=== PATIENT | female | born 1955 | race Caucasian/White ===

== ENCOUNTER → 2023-09-17 | Outpatient (CLI) | payer MEDICARE, OTHER ==
--- NOTE | 2023-09-17 17:02 | US ---
EXAMINATION TYPE: US venous doppler duplex LE BI DATE OF EXAM: 09/17/2023 2:37 PM COMPARISON: NONE CLINICAL INDICATION: Female, 68 years old with history of L81.9 Discoloration of BLE; Discoloration o f BLE. No hx of DVT. Patient does not take blood thinners. SIDE PERFORMED: Bilateral TECHNIQUE: The lower extremity deep venous system is examined utilizing real time linear array sonog yaakov with graded compression, doppler sonography and color-flow sonography. VESSELS IMAGED: Common Femoral Vein Deep Femoral Vein Greater Saphenous Vein * Femoral Vein Popliteal Vein Small Saphenous Vein * Proximal Calf Veins (* superficial vessels) Right Leg: No evidence of DVT. Left Leg: No evidence of DVT. IMPRESSION:
--- NOTE | 2023-09-17 17:10 | US ---
EXAMINATION TYPE: US arterial LE single level DATE OF EXAM: 09/17/2023 3:07 PM CLINICAL INDICATION: Female, 68 years old with history of L81.9 DISCOLORATION BLE; Discoloration of B LE. Patient states she gets itchy red spots on her legs. History of: Smoker: Previous Hypertension: Yes Diabetic: No Hyperlipidemia: Yes TIA/CVA: No Previous Vascular Surgery: No CAD: No MS: No Vascular Ulcers: No Claudication: No Gangrene: No Doppler Waveforms: Right: Multiphasic Left: Multiphasic Pulse Volume Recording: Pressure Gradients: Right Brachial Pressure: 149 Left Brachial Pressure: 151 Ankle-Brachial Indices: Right: 1.05 Left: 1.07 Toe Brachial Indices: Right: 0.70 Left: 0.66 IMPRESSION: Normal ankle-brachial indices bilaterally.
== END | disposition home or self-care (01) ==
LOC: RADUSWWP 13:24
PROVIDERS: ATTEND Family Medicine
DX: L81.9 Disorder of pigmentation, unspecified (principal); I10 Essential (primary) hypertension; E78.5 Hyperlipidemia, unspecified
CPT/HCPCS: 93922; 93970

== ENCOUNTER 2024-11-06 08:56 | Emergency (ER) | payer MEDICARE, OTHER ==
[2024-11-06 09:04] VITALS: RESP 16; TEMP 98.1
--- NOTE | 2024-11-06 09:21 | ED ---
General Adult HPI <Brigida Garcia - Last Filed: 11/06/24 10:22> - General Source: patient, RN notes reviewed Mode of arrival: wheelchair Limitations: no limitations <Nils Ceballos - Last Filed: 11/06/24 13:31> - General Chief complaint: Fall Stated complaint: Fall Time Seen by Provider: 11/06/24 09:05 - History of Present Illness Initial comments: Patient is a 69-year-old female who presents emergency department after a fall. Patient tripped and fell on a curb at [place]. Has history of hypertension, hyperlipidemia, COPD. States that when she fell, she did strike the right side of her head as well as her left hand. Has a laceration on her left anterior ring finger and also pain with movement. Some mild tenderness over both knees but able to ambulate without issue. Denies any back pain, abdominal pain, chest pain. States she did not lose consciousness. States she is not on blood thinners. Has some bruising surrounding the right eye but no blurry vision or visual changes. No other acute complaints at this time. Presents for further evaluation. (Nils Ceballos) - Related Data Home Medications Medication Instructions Recorded Confirmed Albuterol Sulfate [Albuterol 1 - 2 puff PO RT-Q6H PRN 11/06/24 11/06/24 Sulfate Hfa] Azithromycin [Zithromax Z Pack] See Taper PO DIRECTED 11/06/24 11/06/24 Simvastatin [Zocor] 40 mg PO HS 11/06/24 11/06/24 Triamterene/Hydrochlorothiazid 1 cap PO DAILY 11/06/24 11/06/24 [Triamterene-Hctz 37.5-25 mg Cp] methylPREDNISolone [Medrol Dose See Taper PO DIRECTED 11/06/24 11/06/24 Pack] Previous Rx's Medication Instructions Recorded Cephalexin [Keflex] 500 mg PO Q12HR 10 Days #20 cap 11/06/24 Allergies Allergy/AdvReac Type Severity Reaction Status Date / Time No Known Allergies Allergy Verified 11/06/24 10:25 Review of Systems ROS Other: All systems not noted in ROS Statement are negative. <Brigida Garcia Last Filed: 11/06/24 10:22> ROS Other: All systems not noted in ROS Statement are negative. <Nils Ceballos - Last Filed: 11/06/24 13:31> ROS Statement: Those systems with pertinent positive or pertinent negative responses have been documented in the HPI. Review of Systems: CONST: Denies fever EYES: Denies blurry vision ENT: Denies nasal congestion C/V: Denies Chest pain RESP: Denies shortness of breath GI: Denies abdominal pain : Denies dysuria SKIN: Endorses finger laceration MSK: Endorses right forehead pain, finger pain NEURO: Denies headache (Nils Ceballos) Past Medical History Past Medical History: COPD, Hyperlipidemia, Hypertension History of Any Multi-Drug Resistant Organisms: None Reported Past Surgical History: No Surgical Hx Reported Past Psychological History: No Psychological Hx Reported Smoking Status: Former smoker Past Alcohol Use History: None Reported Past Drug Use History: None Reported <Nils Ceballos - Last Filed: 11/06/24 13:31> General Exam Limitations: no limitations <Nils Ceballos - Last Filed: 11/06/24 13:31> - General Exam Comments Initial Comments: General: Appears in mild distress secondary to pain. HEAD: Bruising over the right forehead. Negative Funes sign. Negative raccoon eyes. EYES: PERRLA, EOMI, conjunctiva normal, no discharge. Pupils are 3 mm and equal bilaterally. ENT: Hearing grossly intact, normal oropharynx. RESPIRATORY: Clear breath sounds bilaterally. No wheezes, rales, or rhonchi. C/V: Regular rate and rhythm. S1 and S2 auscultated, no edema, peripheral pulses 2+ and intact throughout ABD: Abd is soft, nontender, nondistended EXT: Decreased range of motion of the left fourth digit on the hand secondary to pain. Pelvis is stable. No midline cervical, thoracic, lumbar spine tende rness to palpation. SKIN: Approximate 2 cm linear laceration located over the anterior aspect of the left fourth digit. NEURO: Alert and oriented x 4. The only deficit is to the left fourth digit on the hand secondary to pain. GCS of 15. (Nils Ceballos) Course Vital Signs 11/06/24 09:00 Temperature 98.1 F Pulse Rate 72 Respiratory 16 Rate Blood Pressure 143/86 O2 Sat by Pulse 95 Oximetry Procedures - Laceration Laceration #1 Consent Obtained: verbal consent Indication: laceration Site: other (Left ring finger) Size (cm): 3 Description: linear Depth: simple, single layer Anesthetic Used: lidocaine 2% Anesthesia Technique: local infiltration Amount (mls): 4 Pre-repair: wound explored, irrigated extensively Type of Sutures: nylon Size of Sutures: 5-0 Number of Sutures: 5 Technique: simple, interrupted <Brigida Garcia - Last Filed: 11/06/24 10:22> - Orthopedic Splinting/Casting Injury #1 Side: left Upper Extremity Injury Location: short arm, finger Upper Extremity Immobilizer: ulnar gutter <Nils Ceballos - Last Filed: 11/06/24 13:31> - Orthopedic Splinting/Casting Injury #1 Additional Comments: Tolerated the procedure well. (Nils Ceballos) Medical Decision Making - Lab Data Result diagrams: 11/06/24 09:50 11/06/24 09:50 <Brigida Garcia - Last Filed: 11/06/24 10:22> - Lab Data Result diagrams: 11/06/24 09:50 11/06/24 09:50 <Nils Ceballos - Last Filed: 11/06/24 13:31> - Medical Decision Making Was pt. sent in by a medical professional or institution (, PA, PAY STATION ATTENDANT, urgent care, hospital, or halfway...) When possible be specific @ -No Did you speak to anyone other than the patient for history (EMS, parent, family, police, friend...)? What history was obtained from this source @ -No Did you review nursing and triage notes (agree or disagree)? Why? @ -I reviewed and agree with nursing and triage notes Were old charts reviewed (outside hosp., previous admission, EMS record, old EKG, old radiological studies, urgent care reports/EKG's, halfway records)? Report findings @ -No old charts were reviewed Differential Diagnosis (chest pain, altered mental status, abdominal pain women, abdominal pain men, vaginal bleeding, weakness, fever, dyspnea, syncope, headache, dizziness, GI bleed, back pain, seizure, CVA, palpatations, mental health, musculoskeletal)? @ -Differential Musculoskeletal Muscular strain, contusion, ligament sprain, fracture, arthritis, septic arthritis, bursitis, cellulitis, muscle spasm, nerve compression, DVT, arterial occlusion, herpes zoster, electrolyte abnormality, tumor.... This is not meant to be in all inclusive list EKG interpreted by me (3pts min.). @ -None done X-rays interpreted by me (1pt min.). @ -Hand x-ray shows an acute left fourth digit proximal phalanx fracture. Post splinting x-ray reveals somewhat improved positioning. CT interpreted by me (1pt min.). @ -CT brain and face negative for any obvious acute traumatic injury or intracranial process. U/S interpreted by me (1pt. min.). @ -None done What testing was considered but not performed or refused? (CT, X-rays, U/S, labs)? Why? @ -None What meds were considered but not given or refused? Why? @ -None Did you discuss the management of the patient with other professionals (professionals i.e. , PA, PAY STATION ATTENDANT, lab, RT, psych nurse, social and human services assistant, systems designer, teacher, tactical response group officer, porter sample case)? Give summary @ -No Was smoking cessation discussed for >3mins.? @ -No Was critical care preformed (if so, how long)? @ -No Were there social determinants of health that impacted care today? How? (Home lessness, low income, unemployed, alcoholism, drug addiction, transportation, low edu. Level, literacy, decrease access to med. care, longterm, rehab)? @ -No Was there de-escalation of care discussed even if they declined (Discuss DNR or withdrawal of care, Hospice)? DNR status @ -No What co-morbidities impacted this encounter? (DM, HTN, Smoking, COPD, CAD, Cancer, CVA, ARF, Chemo, Hep., AIDS, mental health diagnosis, sleep apnea, morbid obesity)? @ -None Was patient admitted / discharged? Hospital course, mention meds given and route, prescriptions, significant lab abnormalities, going to OR and other pertinent info. @ -Based on the patient's presentation physical exam, presents emergency d epartment after a fall. Has a laceration to the left fourth digit on her hand with some tenderness of this digit. Also has some bruising above the right eye after the fall. No significant headache. Complaining of pain in the digit. Bleeding from laceration there as well. Is not up-to-date and on tetanus and patient will be given tetanus booster. Patient given Tylenol for pain. Lidocaine is ordered for numbing. Will obtain x-rays and CT brain and facial bones. Patient also empirically given a dose of Ancef for the laceration of the hand. She was in agreement this plan. Labs unremarkable. CT imaging negative for any obvious traumatic injury. And x-ray shows a acute left fourth digit proximal phalanx fracture. This is not near the site of the laceration therefore I do not suspect an open fracture however we will cover for an open fracture with Keflex at home. Patient placed in a gutter splint and tolerated the procedure well after laceration was repaired by an catering administrative assistant midlevel provider. Patient given analgesia medications and vital signs are within acceptable limits. Instructions follow-up with hand surgery next week. She was in agreement this plan. Strict return precautions discussed. I will provide the patient with a prescription for Tylenol 3 starter pack. I instructed the patient to follow up with their PCP in the next 1-3 days. I provided contact information for follow up with orthopedic hand surgery. I explained that the patient should return to the emergency department if they experience any worsening symptoms. Strict return precautions were discussed with the patient. The patient expressed understanding of these instructions. I answered all questions that the patient had. The patient was discharged home in good condition with their prescriptions and follow up information. Undiagnosed new problem with uncertain prognosis? @ -No Drug Therapy requiring intensive monitoring for toxicity (Heparin, Nitro, Insulin, Cardizem)? @ -No Were any procedures done? @ -Splinting, laceration repair Diagnosis/symptom? @ -Fall, proximal phalanx fracture of left fourth digit, laceration Acute, or Chronic, or Acute on Chronic? @ -Acute Uncomplicated (without systemic symptoms) or Complicated (systemic symptoms)? @ -Uncomplicated Side effects of treatment? @ -None Exacerbation, Progression, or Severe Exacerbation] @ -No Poses a threat to life or bodily function? @ -Unlikely at this time (Nils Ceballos) - Lab Data Lab Results 11/06/24 11/06/24 Range/Units 09:50 09:50 WBC 7.12 (4.50-10.00) 10*3/uL RBC 5.05 (4.10-5.20) 10*6/uL Hgb 15.1 H (12.0-15.0) g/dL Hct 43.8 (37.2-46.3) % MCV 86.7 (80.0-97.0) fL MCH 29.9 (27.0-32.0) pg MCHC 34.5 (32.0-37.0) g/dL Plt Count 217 (140-440) 10*3/uL MPV 11.3 (9.5-12.2) fL Immature Gran % (Auto) 0.3 % Neutrophils % (Manual) 48 % Lymphocytes % (Manual) 34 % Monocytes % (Manual) 18 % Immature Gran # 0.02 (0.00-0.04) 10*3/uL Neutrophils # (Manual) 3.42 (1.3-7.7) k/uL Lymphocytes # (Manual) 2.42 (1.0-4.8) k/uL Monocytes # (Manual) 1.28 H (0-1.0) k/uL Nucleated RBCs 0 (0-0) /100 WBC Manual Slide Review Performed RBC Morphology Normal Sodium 135 L (137-145) mmol/L Potassium 3.0 L (3.5-5.1) mmol/L Chloride 101 (98-107) mmol/L Carbon Dioxide 28 (22-30) mmol/L Anion Gap 6 mmol/L BUN 16 (7-17) mg/dL Creatinine 0.68 (0.52-1.04) mg/dL Est GFR (CKD-EPI)AfAm >90 (>60 ml/min/1.73 sqM) Est GFR (CKD-EPI)NonAf 88 (>60 ml/min/1.73 sqM) Glucose 98 (74-99) mg/dL Calcium 8.9 (8.4-10.2) mg/dL Disposition <Brigida Garcia - Last Filed: 11/06/24 10:22> Is patient prescribed a controlled substance at d/c from ED?: Yes When asked, does pt state using other controlled substances?: No If prescribed controlled substance>3 days was MAPS reviewed?: Prescribed <3 Days If opioid is for acute pain is fill amount 7 days or less?: Yes If Rx opioid, was Start Talking consent form obtained?: Yes Time of Disposition: 11:59 <Nils Ceballos - Last Filed: 11/06/24 13:31> Clinical Impression: Fall, Proximal phalanx fracture of finger, Laceration Disposition: HOME SELF-CARE Condition: Good Instructions (If sedation given, give patient instructions): Finger Fracture (ED), Fall Prevention for Older Adults (ED) Prescriptions: Cephalexin [Keflex] 500 mg PO Q12HR 10 Days #20 cap Referrals: Trev aRngel MD [Primary Care Provider] - 1-2 days Erma Collazo [Doctor of Osteopathic Medicine] - 1-2 days Casper Doe MD [STAFF PHYSICIAN] - 1-2 days
[2024-11-06] MEDS: ACETAMINOPHEN TAB 325 MG TAB PO STA (09:56)
[2024-11-06] MEDS: DIPH,PERTUS(ACELL)TETVAC-LF 0.5 ML VIAL IM ONE (09:57)
[2024-11-06] MEDS: LIDOCAINE 2% INJ 20 MG/ML (20 ML MDV) SQ STA (09:58)
[2024-11-06] MEDS: ceFAZolin 2 GM in DEXTROSE 5% IN WATER 50 ML IVPB ONE (09:58)
[2024-11-06 10:04] LABS: HCT 43.8 % (37.2-46.3); HGB 15.1 g/dL (12.0-15.0); MCH 29.9 pg (27.0-32.0); MCHC 34.5 g/dL (32.0-37.0); MCV 86.7 fL (80.0-97.0); Mean Platelet Volume 11.3 fL (9.5-12.2); Platelet Count 217 10*3/uL (140-440); RBC 5.05 10*6/uL (4.10-5.20); RDW 13.1 % (11.5-14.5); WBC 7.12 10*3/uL (4.50-10.00)
[2024-11-06 10:16] LABS: African American GFR (CKD) >90 (>60 ml/min/1.73 sqM); Anion Gap 6 mmol/L; Blood Urea Nitrogen 16 mg/dL (7-17); Calcium 8.9 mg/dL (8.4-10.2); Carbon Dioxide 28 mmol/L (22-30); Chloride 101 mmol/L (98-107); Glucose 98 mg/dL (74-99); Non-African American GFR(CKD) 88 (>60 ml/min/1.73 sqM); Sodium 135 mmol/L (137-145)
--- NOTE | 2024-11-06 10:48 | CT ---
EXAMINATION TYPE: CT brain wo con, CT facial bones wo con CT DLP: 1340.4 mGycm, Automated exposure control for dose reduction was used. DATE OF EXAM: 11/06/2024 10:37 AM COMPARISON: None. CLINICAL INDICATION:Female, 69 years old with history of fall, left 4th digit pain/laceration; Fall, hematoma to right eye. Denies loc, denies thinners. TECHNIQUE: Brain: Multiple axial CT images of the brain were obtained without IV contrast. Facial bones; axial CT images of the facial bones were obtained without contrast and soft tissue and bone windows. Coronal and sagittal reformatted images were also reviewed. FINDINGS: Brain: Extra-axial spaces: No abnormal extra-axial fluid collections. Ventricular system: Within normal limits Cerebral parenchyma: No acute intraparenchymal hemorrhage or mass effect. The patel-white junction is well differentiated. Scattered hypoattenuating areas are seen within the periventricular white matte r. Cerebellum: Unremarkable. Mass effect: No evidence of midline shift. Intracranial vasculature: Atherosclerotic calcifications of the intracranial vessels. Soft tissues: Normal. Calvarium: No depressed skull fracture. Visualized orbits: Orbital contents are intact. Facial Bones: There is no evidence of fracture, subluxation, dislocation, or significant soft tissue swelling. The orbital contents are unremarkable. The temporal-mandibular joints appear symmetric. Mild mucosal thic kening of the ethmoid sinuses and right frontal sinus. Air fluid levels identified within the bilater al maxillary sinuses. Minimal mucosal thickening of the left sphenoid sinus. The mastoid air cells ar e clear clear bilaterally. IMPRESSION: 1. No acute intracranial process. 2. Nonspecific white matter changes, likely secondary to chronic small vessel ischemic disease. 3. No acute facial bone fracture. 4. Paranasal sinus disease with air-fluid levels within the bilateral maxillary sinuses. Correlate f or acute sinusitis. [facility], , 11/06/2024 10:46 AM
[2024-11-06 11:11] LABS: Lymphocytes # (M) 2.42 k/uL (1.0-4.8); Monocytes # (M) 1.28 k/uL (0-1.0); Neutrophils # (M) 3.42 k/uL (1.3-7.7); Neutrophils % (M) 48 %; Nucleated Red Blood Cells 0 /100 WBC (0-0); Total Cells Counted 100
[2024-11-06 11:12] LABS: RBC Morphology Normal
--- NOTE | 2024-11-06 11:20 | XR ---
EXAMINATION TYPE: XR hand complete LT DATE OF EXAM: 11/06/2024 CLINICAL INDICATION: Female, 69 years old with history of fall, left 4th digit pain/laceration, pain TECHNIQUE: Frontal, lateral and oblique images of the left hand are obtained. COMPARISON: None. FINDINGS: There is acute oblique displaced impacted fracture proximal metadiaphysis of the fourth pr oximal phalanx. The joint spaces in the left hand appear within normal limits. The overlying soft ti ssue appears unremarkable. IMPRESSION: There is acute displaced impacted oblique fracture proximal metadiaphysis fourth proxima l phalanx. [facility], , 11/06/2024 11:18 AM
[2024-11-06] MEDS: POTASSIUM CHLORIDE ER 20 MEQ TAB.ER PO STA (12:17)
[2024-11-06] MEDS: MORPHINE SULFATE 2 MG/ML SYRINGE IVP STA (12:18)
[2024-11-06] MEDS: ACET/COD 300 MG/30 MG STARTER PACK 6 TAB BTL PO STA (12:19)
--- NOTE | 2024-11-06 13:03 | XR ---
EXAMINATION TYPE: XR hand limited LT DATE OF EXAM: 11/06/2024 CLINICAL INDICATION: Female, 69 years old with history of post splint, pain TECHNIQUE: Single frontal image of the left hand is obtained. COMPARISON: Left hand x-ray earlier today. FINDINGS: There is now overlying bandage or splint material along the ulnar aspect of the left hand. Persistent oblique slightly displaced impacted fracture proximal metadiaphysis left fourth proximal phalanx is seen. Alignment is unchanged on frontal projection. IMPRESSION: As above. [facility], , 11/06/2024 1:00 PM
[2024-11-06] MEDS: MORPHINE SULFATE 4 MG/ML SYRINGE IVP STA (13:35)
[2024-11-06 13:57] VITALS: BP 140/88; PULSE 68
== END 2024-11-06 13:45 | disposition home or self-care (01) ==
LOC: EC 08:56
DX: S61.215A Laceration without foreign body of left ring finger without damage to nail, initial encounter (principal); S62.617A Displaced fracture of proximal phalanx of left little finger, initial encounter for closed fracture; I10 Essential (primary) hypertension; E78.5 Hyperlipidemia, unspecified; J44.9 Chronic obstructive pulmonary disease, unspecified; Z87.891 Personal history of nicotine dependence; Z23 Encounter for immunization; W01.0XXA Fall on same level from slipping, tripping and stumbling without subsequent striking against object, initial encounter
CPT/HCPCS: 99284 ×2; 90471 ×2; 96365 ×2; 96366 ×2; 96375 ×2; 96376 ×2; 12002 ×2; 29125 ×2; 36415; 80048; 85025; 73120; 73130; 70486; 70450; 90715; J2270 ×2; J0690; J2003